=== PATIENT | female | born 1940 | race African-American/Black ===

== ENCOUNTER 2017-02-25 11:08 | Emergency (ER) | payer BC, MEDICARE ==
[~2017-02-25] VITALS: Ht 121.9 cm; Wt 99.8 kg
[~2017-02-25 11:08] MED LIST: Aspirin PO; CIPR500T94 PO; HYDR-971 PO; TRAM-48 PO
[2017-02-25] MEDS ORDERED: BUTALB/APAP/CAFEIN 50/325/40MG TABLET. PO STA (12:17)
--- NOTE | 2017-02-25 12:24 | PHYS DOC ---
Past Medical History Past Medical History: Arthritis, Cancer, COPD, Hypertension, Hypothyroid, Other Additional Past Medical Histor: Sleep apnea, gout Past Surgical History: Cancer Surgery, Other Additional Past Surgical Histo: Breast biospy, lung cancer, right lobectomy Alcohol Use: Rarely Drug Use: None Adult General Chief Complaint Chief Complaint: FLU SYMPTOM HPI HPI Patient is a 76 year old female who presents with complaint of body aches and headache. Patient states her symptoms started yesterday. Patient states she has history of COPD and notes that she has been having coughing over the past month. Patient states that her cough has lessened but is still present at this time. Patient started getting body aches and left-sided headache starting last night. Patient states that the pain radiates into her left ear. Patient also feels that she has had discomfort towards the left side of her throat stating "it feels like it is closing up on the left side." The patient however denies any shortness of breath and denies vomiting or abdominal pain. Patient states that she has had mild nausea and decreased appetite and has not been eating or drinking well over the past 2 days. Patient denies any known sick contacts. Patient has not taken her medications today to help with her symptoms. Patient has had subjective fevers but has not recorded her temperature at home. Review of Systems Review of Systems Constitutional: Subjective fever[] Eyes: Denies change in visual acuity, redness, or eye pain [] HENT: Denies nasal congestion or sore throat [] Respiratory: Cough[] Cardiovascular: Denies chest pain or edema[] GI: Nausea, anorexia, denies abdominal pain, vomiting, or diarrhea[] : Denies dysuria or hematuria [] Musculoskeletal: Myalgias[] Integument: Denies rash or skin lesions [] Neurologic: Headache, denies focal weakness or sensory changes [] All other systems were reviewed and found to be within normal limits, except as documented in this note. Current Medications Current Medications Current Medications Medications (Trade) Dose Ordered Sig/Yaya Start Time Stop Time Status Last Admin Dose Admin Acetaminophen/ Butalbital/ Caffeine (Fioricet) 2 tab 1X STAT 02/25/17 12:17 02/25/17 12:23 DC 02/25/17 12:17 2 TAB Prednisone (Prednisone) 50 mg 1X ONCE 02/25/17 12:30 02/25/17 12:31 DC 02/25/17 12:30 50 MG Allergies Allergies Allergies Coded Allergies Type Severity Reaction Last Updated Verified adhesive Allergy Intermediate rash, itching 08/04/14 Yes morphine Allergy Intermediate hallucinations 03/13/14 Yes Physical Exam Physical Exam Constitutional: Alert, afebrile, vital signs stable, no acute distress. [] HENT: Normocephalic, atraumatic, bilateral external ears normal, oropharynx moist, no oral exudates, nose normal. [] Eyes: PERRLA, EOMI, conjunctiva normal, no discharge. [] Neck: Normal range of motion, left anterior cervical lymphadenopathy present, supple, no stridor. [] Cardiovascular:Heart rate regular rhythm, no murmur [] Lungs & Thorax: Bilateral breath sounds clear to auscultation [] Abdomen: Bowel sounds normal, soft, no tenderness, no masses, no pulsatile masses. [] Skin: Warm, dry, no erythema, no rash. [] Back: No tenderness, no CVA tenderness. [] Extremities: No tenderness, no cyanosis, no clubbing, ROM intact, no edema. [] Neurologic: Alert and oriented X 3, normal motor function, normal sensory function, no focal deficits noted. [] Current Patient Data Vital Signs Vital Signs Date Time Temp Pulse Resp B/P (MAP) Pulse Ox O2 Delivery O2 Flow Rate FiO2 02/25/17 13:55 60 18 113/61 (78) 96 Room Air 02/25/17 11:11 97.9 97.9 Lab Values Laboratory Tests Test 02/25/17 11:45 02/25/17 12:25 Influenza Type A Antigen Negative (NEGATIVE) Influenza Type B Antigen Negative (NEGATIVE) White Blood Count 10.2 x10^3/uL (4.0-11.0) Red Blood Count 4.68 x10^6/uL (3.50-5.40) Hemoglobin 13.9 g/dL (12.0-15.5) Hematocrit 41.6 % (36.0-47.0) Mean Corpuscular Volume 89 fL (79-100) Mean Corpuscular Hemoglobin 30 pg (25-35) Mean Corpuscular Hemoglobin Concent 33 g/dL (31-37) Red Cell Distribution Width 15.1 % (11.5-14.5) H Platelet Count 244 x10^3/uL (140-400) Neutrophils (%) (Auto) 66 % (31-73) Lymphocytes (%) (Auto) 26 % (24-48) Monocytes (%) (Auto) 5 % (0-9) Eosinophils (%) (Auto) 2 % (0-3) Basophils (%) (Auto) 1 % (0-3) Neutrophils # (Auto) 6.8 x10^3uL (1.8-7.7) Lymphocytes # (Auto) 2.6 x10^3/uL (1.0-4.8) Monocytes # (Auto) 0.5 x10^3/uL (0.0-1.1) Eosinophils # (Auto) 0.1 x10^3/uL (0.0-0.7) Basophils # (Auto) 0.1 x10^3/uL (0.0-0.2) Sodium Level 140 mmol/L (136-145) Potassium Level 3.6 mmol/L (3.5-5.1) Chloride Level 101 mmol/L (98-107) Carbon Dioxide Level 31 mmol/L (21-32) Anion Gap 8 (6-14) Blood Urea Nitrogen 16 mg/dL (7-20) Creatinine 1.1 mg/dL (0.6-1.0) H Estimated GFR (Cockcroft-Gault) 58.4 Glucose Level 105 mg/dL (70-99) H Calcium Level 9.5 mg/dL (8.5-10.1) Magnesium Level 2.0 mg/dL (1.8-2.4) Laboratory Tests 02/25/17 12:25 Laboratory Tests 02/25/17 12:25 EKG EKG Interpreted by me: Heart rate 67, sinus rhythm, incomplete right bundle branch block, no acute ST elevations or depressions[] Radiology/Procedures Radiology/Procedures [facility] [address] [place] [address] IMAGING REPORT Signed PATIENT: SANAM MARIA ACCOUNT: [id number] : 1940 LOCATION: ER AGE: 76 SEX: F EXAM STATUS: REG ER ORD. PHYSICIAN: NICOLE MON MD REASON: cough, HEAD PAIN, WEAKNESS, X A FEW DAYS PROCEDURE: CHEST PA & LATERAL CHEST PA LATERAL Clinical Indication: cough, HEAD PAIN, WEAKNESS, X A FEW DAYS Comparison: Chest radiograph and CT dated 08/03/2014. Findings: Unchanged asymmetric low right lung volume. No focal consolidations. Stable pulmonary vasculature. Unchanged blunting of the right costophrenic angle. No pneumothorax. The cardiomediastinal silhouette and great vessels are stable. No acute osseous abnormality. Unchanged right rib deformities. IMPRESSION: 1. No focal consolidation. 2. Unchanged blunting of the right costophrenic angle which corresponds to postsurgical scarring seen on prior CT. DICTATED and SIGNED BY: JOHN PORRAS MD DATE: 02/25/17 1310 CC: REA SANTOS; NICOLE MON MD ~ [] Course & Med Decision Making Course & Med Decision Making Pertinent Labs and Imaging studies reviewed. (See chart for details) Patient was given prednisone and Fioricet for treatment of symptoms. The patient 's blood work was unremarkable and patient's influenza test was negative. I suspect the patient has a viral respiratory illness causing her symptoms. The patient will continue on Fioricet for headache and Medrol Dosepak for treatment of suspected mild exacerbation of COPD. Advised patient follow-up in 2-3 days a primary doctor for reevaluation. Advised return emergency department for any worsening symptoms. Patient voiced understanding and in agreement with treatment plan. Dragon Disclaimer Dragon Disclaimer This electronic medical record was generated, in whole or in part, using a voice recognition dictation system. Departure Departure Impression: Primary Impression: Viral respiratory illness Disposition: 01 HOME, SELF-CARE Condition: IMPROVED Referrals: REA SANTOS (PCP) Patient Instructions: Viral Infections Additional Instructions: Follow-up to primary doctor in 2-3 days for reevaluation. Return to emergency department for any worsening symptoms. Scripts Butalb/Acetaminophen/Caffeine ([id number] 50-325-40) 1 Each Tablet 1 EACH PO Q4-6HRS Y for HEADACHE, #20 TAB Prov: NICOLE MON MD 02/25/17 Methylprednisolone (MEDROL) 4 Mg Tab.ds.pk 1 PKG PO UD, #1 PKG Prov: NICOLE MON MD 02/25/17 NICOLE MON MD Feb 25, 2017 12:24
[2017-02-25 12:26] LABS: OBC FLU VALID
[2017-02-25] MEDS ORDERED: predniSONE 10 MG TABLET PO ONE (12:30)
[2017-02-25 12:47] LABS: BASO # 0.1 x10^3/uL (0.0-0.2); BASO % 1 % (0-3); EOS % 2 % (0-3); HEMATOCRIT 41.6 % (36.0-47.0); HEMOGLOBIN 13.9 g/dL (12.0-15.5); LYMPH # 2.6 x10^3/uL (1.0-4.8); LYMPH % 26 % (24-48); MEAN CORPUSCULAR HEMOGLOBIN 30 pg (25-35); MEAN CORPUSCULAR HGB CONC 33 g/dL (31-37); MEAN CORPUSCULAR VOLUME 89 fL (79-100); MONO % 5 % (0-9); NEUT % 66 % (31-73); PLATELET COUNT 244 x10^3/uL (140-400); RED BLOOD COUNT 4.68 x10^6/uL (3.50-5.40); RED CELL DISTRIBUTION WIDTH 15.1 % (11.5-14.5); WHITE BLOOD COUNT 10.2 x10^3/uL (4.0-11.0)
[2017-02-25 12:52] LABS: CALCIUM 9.5 mg/dL (8.5-10.1); CREATININE 1.1 mg/dL (0.6-1.0); GFR 58.4; POTASSIUM 3.6 mmol/L (3.5-5.1)
--- NOTE | 2017-02-25 13:20 | RAD ---
CHEST PA LATERAL Clinical Indication: cough, HEAD PAIN, WEAKNESS, X A FEW DAYS Comparison: Chest radiograph and CT dated 08/03/2014. Findings: Unchanged asymmetric low right lung volume. No focal consolidations. Stable pulmonary vasculature. Unchanged blunting of the right costophrenic angle. No pneumothorax. The cardiomediastinal silhouette and great vessels are stable. No acute osseous abnormality. Unchanged right rib deformities. IMPRESSION: 1. No focal consolidation. 2. Unchanged blunting of the right costophrenic angle which corresponds to postsurgical scarring seen on prior CT.
[2017-02-25] MEDS ORDERED: METH4TAB2 PO (13:30)
[2017-02-25] MEDS ORDERED: BUTA1TAB23 PO (13:30)
[2017-02-25 13:55] VITALS: BP 113/61
--- NOTE | 2017-02-25 16:05 | EKG ---
[facility] [address] [place] [address] Test Date: 2017-02-25 Test Time: 12:30:05 Pat Name: SANAM MARIA Department: Room: Gender: F [employer]: : 1940 Requested By: NICOLE MON Order Number: [id number] Reading MD: Parth Fletcher Measurements Intervals [place] Rate: 67 P: 54 AR: 214 QRS: 43 QRSD: 106 T: 38 QT: 424 QTc: 451 Interpretive Statements SINUS RHYTHM R-S TRANSITION ZONE IN V LEADS DISPLACED TO THE RIGHT INCOMPLETE RIGHT BUNDLE BRANCH BLOCK T ABNORMALITY IN ANTEROSEPTAL LEADS ABNORMAL ECG RI6.01 Compared to ECG 08/03/2014 11:51:09 Incomplete right bundle-branch block now present Prolonged QT interval no longer present T-wave abnormality still present Electronically Signed On 02-25-2017 17:54:40 DEPUTY SHERIFF GENERALIST/BAILIFF by Parth Fletcher
== END 2017-02-25 14:03 | disposition home or self-care (01) ==
LOC: ER 11:08
DX: B34.9 Viral infection, unspecified (principal); M19.90 Unspecified osteoarthritis, unspecified site; J44.9 Chronic obstructive pulmonary disease, unspecified; I10 Essential (primary) hypertension; E03.9 Hypothyroidism, unspecified; G47.30 Sleep apnea, unspecified; M10.9 Gout, unspecified; Z90.2 Acquired absence of lung [part of]; Z88.5 Allergy status to narcotic agent; Z91.048 Other nonmedicinal substance allergy status
CPT/HCPCS: 36415; 71020; 80048; 83735; 85025; 87804; 93005; 99285; J7512

== ENCOUNTER 2017-04-13 17:25 | Emergency (ER) | payer BC ==
[2017-04-13 17:58] LABS: POC GLUCOSE 359 mg/dL (70-99)
[2017-04-13 18:13] LABS: BASO % 0 % (0-3); EOS % 0 % (0-3); HEMATOCRIT 42.4 % (36.0-47.0); HEMOGLOBIN 14.2 g/dL (12.0-15.5); LYMPH # 1.3 x10^3/uL (1.0-4.8); LYMPH % 11 % (24-48); MEAN CORPUSCULAR HEMOGLOBIN 29 pg (25-35); MEAN CORPUSCULAR HGB CONC 33 g/dL (31-37); MEAN CORPUSCULAR VOLUME 87 fL (79-100); MONO # 0.3 x10^3/uL (0.0-1.1); MONO % 3 % (0-9); NEUT # 10.4 x10^3uL (1.8-7.7); NEUT % 86 % (31-73); PLATELET COUNT 194 x10^3/uL (140-400); RED BLOOD COUNT 4.91 x10^6/uL (3.50-5.40); RED CELL DISTRIBUTION WIDTH 15.7 % (11.5-14.5)
[2017-04-13 18:16] LABS: ADD MAN DIFF? YES
[2017-04-13 18:31] LABS: ANION GAP 10 (6-14); BLOOD UREA NITROGEN 23 mg/dL (7-20); BUN/CREATININE RATIO 19 (6-20); CALCIUM 9.5 mg/dL (8.5-10.1); CARBON DIOXIDE 34 mmol/L (21-32); CHLORIDE 94 mmol/L (98-107); CREATININE 1.2 mg/dL (0.6-1.0); GFR 52.9; GLUCOSE 376 mg/dL (70-99); POTASSIUM 4.6 mmol/L (3.5-5.1); SODIUM 138 mmol/L (136-145)
[2017-04-13 18:38] LABS: ALBUMIN 3.7 g/dL (3.4-5.0); ALK PHOS 102 U/L (46-116); ALT (SGPT) 24 U/L (14-59); AST (SGOT) 15 U/L (15-37); TOTAL BILIRUBIN 0.4 mg/dL (0.2-1.0); TOTAL PROTEIN 7.4 g/dL (6.4-8.2)
[2017-04-13 18:47] LABS: TROPONINI < 0.017 ng/mL (0.000-0.055)
[2017-04-13 18:55] LABS: % BANDS 5 % (0-9); % LYMPHS 10 % (24-48); % MONOS 2 % (0-10); % SEGS 83 % (35-66)
[2017-04-13 18:56] LABS: PLT ESTIMATE ADEQUATE (ADEQUATE)
[2017-04-13] MEDS: IV NORMAL SALINE 1000ML BAG 1,000 ML IV (19:31)
[2017-04-13 20:33] LABS: BILIRUBIN,URINE NEGATIVE (NEG); CLARITY,URINE CLEAR; COLOR,URINE YELLOW; GLUCOSE,URINE >=1000 mg/dL (NEG); NITRITE,URINE NEGATIVE (NEG); PH,URINE 6.5; PROTEIN,URINE NEGATIVE (NEG-TRACE); UROBILINOGEN,URINE 0.2 mg/dL (0.2 mg/dL)
[2017-04-13 20:42] LABS: BACTERIA,URINE MANY /HPF (0-FEW); RBC,URINE 0 /HPF (0-2); SQUAMOUS EPITHELIAL CELL,UR MANY /LPF
[2017-04-13 20:54] LABS: POC GLUCOSE 271 mg/dL (70-99)
== END 2017-04-13 21:09 | disposition home or self-care (01) ==
LOC: ER 17:25
DX: E11.65 Type 2 diabetes mellitus with hyperglycemia (principal); M19.90 Unspecified osteoarthritis, unspecified site; J44.9 Chronic obstructive pulmonary disease, unspecified; I10 Essential (primary) hypertension; E03.9 Hypothyroidism, unspecified; G47.30 Sleep apnea, unspecified; M10.9 Gout, unspecified; Z79.52 Long term (current) use of systemic steroids; Z90.2 Acquired absence of lung [part of]; Z88.5 Allergy status to narcotic agent; Z91.048 Other nonmedicinal substance allergy status
CPT/HCPCS: 36415; 80053; 81001; 82962; 84484; 85007; 85025; 87086; 87186; 93005; 96360; 99285-25; J7030